=== PATIENT | male | born 1975 | race Caucasian/White ===

== ENCOUNTER 2018-06-18 14:06 | Emergency (ER) | payer BC, OTHER ==
--- NOTE | 2018-06-18 14:59 | EDM.PDOC ---
ED HPI GENERAL MEDICAL PROBLEM - General Chief Complaint: Head Injury Stated Complaint: HEAD LACERATION Time Seen by Provider: 06/18/18 14:38 Source of Information: Reports: Patient History Limitations: Reports: No Limitations - History of Present Illness INITIAL COMMENTS - FREE TEXT/NARRATIVE: Patient presents with laceration on top of his head from the [place] of his car dropping down on him. He denies any LOC, neck pain, vision change. He says his last tetanus update was 5 years ago with his employer. Head Pain Score (Numeric/FACES): 2 - Related Data Allergies Allergy/AdvReac Type Severity Reaction Status Date / Time No Known Drug Allergies Allergy Other Verified 06/18/18 14:24 Past Medical History - Past Health History Medical/Surgical History: Denies Medical/Surgical History Gastrointestinal History: Reports: None Genitourinary History: Reports: None - Infectious Disease History Infectious Disease History: Reports: Chicken Pox - Past Surgical History HEENT Surgical History: Reports: Other (See Below) Other HEENT Surgeries/Procedures: tooth extraction GI Surgical History: Reports: Colonoscopy Male Surgical History: Reports: Vasectomy Social & Family History - Family History Family Medical History: Noncontributory - Tobacco Use Smoking Status *Q: Former Smoker Years of Tobacco use: 20 Packs/Tins Daily: 0.5 Used Tobacco, but Quit: Yes Month/Year Tobacco Last Used: na - Recreational Drug Use Recreational Drug Use: No ED ROS GENERAL - Review of Systems Review Of Systems: See Below Constitutional: Denies: Fever, Chills, Weakness HEENT: Denies: Ear Discharge, Vertigo, Vision Change Respiratory: Reports: No Symptoms. Denies: Shortness of Breath Cardiovascular: Denies: Chest Pain, Lightheadedness, Syncope GI/Abdominal: Reports: No Symptoms. Denies: Vomiting Musculoskeletal: Denies: Neck Pain, Shoulder Pain, Arm Pain, Back Pain, Hand Pain, Leg Pain Skin: Denies: Cyanosis, Jaundice, Mottled, Pallor, Diaphoresis Neurological: Reports: No Symptoms. Denies: Confusion, Dizziness, Headache, Seizure, Syncope, Difficulty Walking, Weakness Psychiatric: Denies: Agitation, Anxiety, Confusion Hematologic/Lymphatic: Denies: Easy Bleeding ED EXAM, HEAD INJURY - Physical Exam Exam: See Below Exam Limited By: No Limitations General Appearance: Alert, WD/WN, No Apparent Distress Head: Normocephalic, Scalp Lacerations, Other (There is a 3 cm laceration of parietal scalp with no significant hematoma or contamination.). No: Scalp Swelling, Scalp Abrasions, Scalp Ecchymosis, Scalp Hematoma, Armijo's Sign, Flap , Facial Abrasions, Facial Ecchymosis, Facial Lacerations, Facial Swelling, Facial Tenderness, Raccoon Eyes Nexus Criteria: No: Posterior, Midline Cervical Tenderness, Evidence of Intoxication, Altered Level of Consciousness, Focal Neurological Deficit, Painful Distraction Injuries Eyes: Bilateral Eye: EOMI, Normal Inspection, PERRL Ears: Normal External Exam, Hearing Grossly Normal Nose: Normal Inspection, No Blood Throat/Mouth: Normal Inspection, Normal Lips, Normal Voice, No Airway Compromise Neck: Non-Tender, Full Range of Motion, Normal Alignment, Normal Inspection. No : Painful Range of Motion, Paraspinous Muscle Tender, Spinous Processes Tender, Tender Lateral, Tender Midline Respiratory: No Respiratory Distress, Lungs Clear, Normal Breath Sounds Cardiovascular: Regular Rate, Rhythm, No Murmur GI/Abdominal Exam: No Distention Back Exam: Full Range of Motion Extremities: Normal Inspection, Normal Range of Motion Neurologic: training administrator II-XII nml As Tested, No Motor/Sensory Deficits, Alert, Normal Mood/Affect, Oriented x 3 Skin: Normal Color, Warm/Dry - Aubrey Coma Score Best Eye Response (Lore): (4) Open Spontaneously Best Verbal Response (Aubrey): (5) Oriented Best Motor Response (Aubrey): (6) Obeys Commands ED LACERATION/WOUND & ROCK PROC - Laceration/Wound Repair Upper Midline Head Lac/wound length in cm: 3 Appearance: Subcutaneous, Clean Distal NVT: Neuro & Vascular Intact Local Anesthesia - Lidocaine (Xylocaine): 1% with EPI Local Anesthetic Volume: 2cc Skin Prep: Chlorhexidine (Hibiciens) Exploration/Debridement/Repair: Wound Explored, In a Bloodless Field, Explored to Base Closed with: [place] # of Sutures: 4 Sterile Dressing Applied: None Tetanus Status Addressed: Yes Complications: No Course - Vital Signs Last Recorded V/S: Last Vital Signs Temp 98.4 F 06/18/18 14:09 Pulse 80 06/18/18 14:09 Resp 16 06/18/18 14:09 BP 148/74 H 06/18/18 14:09 Pulse Ox 94 L 06/18/18 14:09 - Re-Assessments/Exams Free Text/Narrative Re-Assessment/Exam: 06/18/18 15:05 Discussed findings, expectations and treatment plan with patient. He wants to forego the tetanus which at 5 years is appropriate. Sterile technique was utilized to staple the laceration. Patient discharged in stable condition. Departure - Departure Time of Disposition: 14:54 Disposition: Home, Self-Care 01 Condition: Good Clinical Impression: Scalp laceration Qualifiers: Encounter type: initial encounter Qualified Code(s): S01.01XA - Laceration without foreign body of scalp, initial encounter - Discharge Information Instructions: Laceration Care, Adult, [id number] Referrals: Vern Juarez PA-C [Primary Care Provider] - Additional Instructions: 1. Keep wound clean and dry, except may shower; no bathing or swimming for ten days. 2. Topical antibiotic ointment daily is okay. 3. Follow up with your PCP in ten days for staple removal. 4. Recheck sooner if any sign of infection as discussed.
== END 2018-06-18 15:00 | disposition home or self-care (01) ==
LOC: KA.ED 14:06
DX: S01.01XA Laceration without foreign body of scalp, initial encounter (principal); W20.8XXA Other cause of strike by thrown, projected or falling object, initial encounter; Z87.891 Personal history of nicotine dependence
CPT/HCPCS: 12002; 99283

== ENCOUNTER 2020-09-14 10:42 | Emergency (ER) | payer BC ==
--- NOTE | 2020-09-14 10:54 | EDM.PDOC ---
ED HPI GENERAL MEDICAL PROBLEM - General Chief Complaint: Skin Complaint Stated Complaint: SHINGLES??? Time Seen by Provider: 09/14/20 10:45 Source of Information: Reports: Patient History Limitations: Reports: No Limitations - History of Present Illness INITIAL COMMENTS - FREE TEXT/NARRATIVE: 45 YO WM PRESENTS TO ER WITH RASH TO LEFT SIDE OF FOREHEAD X 4 DAYS. PT REPORTS RASH INITIALLY STARTED AN ITCH BUT 4 DAYS AGO HE DEVELOPED VESICLES TO LEFT SIDE OF FOREHEAD. PT BECAME CONCERNED WHEN TODAY HE WOKE UP AND THE LEFT SIDE OF HIS EYELID WAS AFFECTED PROMPTING ER EVALUATION. PT DENIES ANY VISUAL CHANGES OR PAIN IN HIS EYE. PT REPORTS HIS EYE HAS BEEN TEARING MORE TODAY. PT DENIES FEVER/CHILLS, NO HEADACHE OR NECK PAIN. PT DENIES NAUSEA/VOMITING OR DIZZINESS. Duration: Day(s): (4) Location: Reports: Head, Face Quality: Reports: Dull Severity: Mild Improves with: Reports: None Worsens with: Reports: None Associated Symptoms: Reports: No Other Symptoms. Denies: Fever/Chills, Headaches, Malaise, Nausea/Vomiting, Weakness Left Eye Pain Score (Numeric/FACES): 3 - Related Data Allergies Allergy/AdvReac Type Severity Reaction Status Date / Time No Known Drug Allergies Allergy Other Verified 06/18/18 14:24 Home Meds: Home Meds Acyclovir [Zovirax] 800 mg PO 5XDAY #35 tab 09/14/20 [Rx] predniSONE [Prednisone] 20 mg PO DAILY #15 tablet 09/14/20 [Rx] Past Medical History - Past Health History Medical/Surgical History: Denies Medical/Surgical History Gastrointestinal History: Reports: None Genitourinary History: Reports: None - Infectious Disease History Infectious Disease History: Reports: Chicken Pox - Past Surgical History HEENT Surgical History: Reports: Other (See Below) Other HEENT Surgeries/Procedures: tooth extraction GI Surgical History: Reports: Colonoscopy Male Surgical History: Reports: Vasectomy Social & Family History - Family History Family Medical History: No Pertinent Family History ED ROS GENERAL - Review of Systems Review Of Systems: See Below Constitutional: Reports: No Symptoms HEENT: Reports: Eye Discharge. Denies: Eye Pain Respiratory: Reports: No Symptoms Cardiovascular: Reports: No Symptoms Endocrine: Reports: No Symptoms GI/Abdominal: Reports: No Symptoms : Reports: No Symptoms Musculoskeletal: Reports: No Symptoms Skin: Reports: Rash Neurological: Reports: No Symptoms Psychiatric: Reports: No Symptoms Hematologic/Lymphatic: Reports: No Symptoms Immunologic: Reports: No Symptoms ED EXAM, SKIN/RASH Exam: See Below Exam Limited By: No Limitations General Appearance: Alert, WD/WN, No Apparent Distress Eye Exam: Bilateral Eye: EOMI, PERRL Ears: Normal External Exam, Normal Canal, Hearing Grossly Normal, Normal TMs Nose: Normal Inspection, Normal Mucosa, No Blood Throat/Mouth: Normal Inspection, Normal Lips, Normal Teeth, Normal Gums, Normal Oropharynx, Normal Voice, No Airway Compromise Head: Atraumatic, Normocephalic Neck: Normal Inspection, Supple, Non-Tender, Full Range of Motion Respiratory/Chest: No Respiratory Distress, Lungs Clear, Normal Breath Sounds, No Accessory Muscle Use, Chest Non-Tender Cardiovascular: Normal Peripheral Pulses, Regular Rate, Rhythm, No Edema, No Gallop, No JVD, No Murmur, No Rub GI/Abdominal: Normal Bowel Sounds, Soft, Non-Tender, No Organomegaly, No Distention, No Abnormal Bruit, No Mass Extremities: Normal Inspection, Normal Range of Motion, Non-Tender, No Pedal Edema, Normal Capillary Refill Neurological: Alert Psychiatric: Normal Affect, Normal Mood Skin: Warm, Dry, Zoster-Like Rash Location, Skin: Head, Face Characteristics: Vesicular Associated features: Tenderness Lymphatic: No Adenopathy ED SKIN PROCEDURES - Additional/Other Procedure(s) Other (Free Text) Procedure(s): TETRACAINE TO LEFT EYE FOR CORNEAL EXAM. NO EVIDENCE OF FLORACEIN STAIN UPTAKE ON EXAM. NO EVIDENCE OF CORNEAL ABRASION OR ULCER NOTED AT THIS TIME. Course - Vital Signs Last Recorded V/S: Last Vital Signs Temp 98.0 F 09/14/20 10:50 Pulse 78 09/14/20 10:50 Resp 18 09/14/20 10:50 BP 119/86 09/14/20 10:50 Pulse Ox 98 09/14/20 10:50 - Orders/Labs/Meds Meds: Medications Discontinued Medications Generic Name Dose Route Start Last Admin Trade Name Freq PRN Reason Stop Dose Admin Tetracaine HCl 1 ml 09/14/20 11:00 Tetracaine 0.5% Steri-Unit Ruth EYELF 09/14/20 11:01 ASDIRECTED ONE Tetracaine HCl Confirm 09/14/20 11:01 Tetracaine 0.5% Steri-Unit Ruth Administered 09/14/20 11:02 Dose 4 ml .ROUTE .STK-MED ONE Departure - Departure Time of Disposition: 11:21 Disposition: Home, Self-Care 01 Condition: Good Clinical Impression: Shingles Qualifiers: Herpes zoster complications: without complications Qualified Code(s): B02.9 - Zoster without complications - Discharge Information Prescriptions: predniSONE [Prednisone] 20 mg PO DAILY #15 tablet Acyclovir [Zovirax] 800 mg PO 5XDAY #35 tab Instructions: Shingles Referrals: Luna Shearer MD [Primary Care Provider] - Forms: ED Department Discharge, ED Return to Work/School Form Additional Instructions: 1. DISCHARGE HOME 2. ACYCLOVIR 800MG 5X/DAY X 7 DAYS 3. PREDNISONE 60MG DAILY X 5 DAYS 4. OFF WORK X 2 DAYS UNTIL SKIN RASH CRUSTS OVER 5. FOLLOW UP WITH PCP FOR FURTHER EVALUATION AND TREATMENT NEEDED 6. RETURN TO ER FOR WORSENING SYMPTOMS Sepsis Event Note (ED) - Focused Exam Vital Signs: Vital Signs Temp Pulse Resp BP Pulse Ox 09/14/20 10:50 98.0 F 78 18 119/86 98 - Assessment/Plan Assessment:: 1. UNCOMPLICATED SHINGLES TO LEFT SIDE OF FACE Plan: 1. DISCHARGE HOME 2. ACYCLOVIR 800MG 5X/DAY X 7 DAYS 3. PREDNISONE 60MG DAILY X 5 DAYS 4. OFF WORK X 2 DAYS UNTIL SKIN RASH CRUSTS OVER 5. FOLLOW UP WITH PCP FOR FURTHER EVALUATION AND TREATMENT NEEDED 6. RETURN TO ER FOR WORSENING SYMPTOMS
[2020-09-14] MEDS: Tetracaine HCl/PF 0.5% 4 ML Bottle EYELF ONE (11:30)
[2020-09-14] MEDS: predniSONE 20 MG Tab PO ONE (11:39)
[2020-09-14] MEDS: Acyclovir 400 MG Tab PO ONE (11:39)
[2020-09-14] MEDS: Tetracaine HCl/PF 0.5% 4 ML Bottle ONE (12:15)
== END 2020-09-14 11:50 | disposition home or self-care (01) ==
LOC: KA.ED 10:42
DX: B02.9 Zoster without complications (principal)
CPT/HCPCS: 99282; 99283; A9270-GY; J7512

== ENCOUNTER 2021-06-04 16:10 | Emergency (ER) | payer BC ==
--- NOTE | 2021-06-04 17:02 | CT ---
[id number] CT/CT Head WO IV EXAM: CT Head WO IV CLINICAL DATA: DECREASED VISION LEFT EYE, RIGHT ARM PAIN. COMPARISON STUDY: None FINDINGS: No intracranial hemorrhage, extra-axial fluid collection, mass, or acute ischemia. No hydrocephalus. Calvarium intact. Paranasal sinuses and mastoid air cells are clear. IMPRESSION: No acute intracranial findings. Dipak Burns MD 06/04/21 2245 Thank you for allowing us to participate in the care of your patient.
--- NOTE | 2021-06-04 17:12 | EDM.PDOC ---
<Lucien Swan Maurice - Last Filed: 06/04/21 17:17> ED HPI GENERAL MEDICAL PROBLEM - General Chief Complaint: General Stated Complaint: BP CK;VISION ISSUE/R ARM PX Time Seen by Provider: 06/04/21 16:49 Source of Information: Reports: Patient History Limitations: Reports: No Limitations - History of Present Illness INITIAL COMMENTS - FREE TEXT/NARRATIVE: Patient presents with recent vision change and right arm pain. He says that at 0700 this morning, while he was at work, his left eye lost most of its vision for 15 minutes; he could see just pinpoint vision and blurry. After 15 minutes it slowly returned to normal. Then at 1120 he felt a tight, restricting pain around the right upper arm that lasted 30 minutes. He now feels completely back to normal and he didn't leave work during the symptoms. He has never had this before. He denies any history of stroke, heart disease, diabetes. He has had a fairly significant itch all over his body that lasts about an hour on most days of the past two weeks; not due to dry skin. - Related Data Allergies Allergy/AdvReac Type Severity Reaction Status Date / Time No Known Drug Allergies Allergy Other Verified 06/04/21 16:18 Home Meds: Home Meds hydrOXYzine HCL [Hydroxyzine HCl] 25 mg PO DAILY PRN 06/04/21 [History] Past Medical History - Past Health History Medical/Surgical History: Denies Medical/Surgical History HEENT History: Reports: None Cardiovascular History: Reports: None Respiratory History: Reports: None Gastrointestinal History: Reports: None Genitourinary History: Reports: None Musculoskeletal History: Reports: None - Infectious Disease History Infectious Disease History: Reports: Chicken Pox, Shingles - Past Surgical History HEENT Surgical History: Reports: Other (See Below) Other HEENT Surgeries/Procedures: tooth extraction Cardiovascular Surgical History: Reports: None Respiratory Surgical History: Reports: None GI Surgical History: Reports: Colonoscopy Male Surgical History: Reports: Vasectomy Musculoskeletal Surgical History: Reports: None Social & Family History - Family History Family Medical History: No Pertinent Family History - Tobacco Use Tobacco Use Status *Q: Former Tobacco User Used Tobacco, but Quit: Yes Month/Year Tobacco Last Used: quit a couple years ago - Caffeine Use Caffeine Use: Reports: Coffee, Soda - Alcohol Use Days Per Week of Alcohol Use: 2 Number of Drinks Per Day: 6 Total Drinks Per Week: 12 - Recreational Drug Use Recreational Drug Use: No ED ROS GENERAL - Review of Systems Review Of Systems: See Below Constitutional: Denies: Fever, Chills, Malaise, Weakness, Diaphoresis, Decreased Appetite HEENT: Reports: Vision Change. Denies: Ear Pain, Throat Pain Respiratory: Denies: Shortness of Breath, Cough Cardiovascular: Denies: Chest Pain, Lightheadedness, Syncope Endocrine: Denies: Fatigue GI/Abdominal: Denies: Abdominal Pain, Nausea, Vomiting : Denies: Dysuria Musculoskeletal: Reports: Arm Pain (see HPI). Denies: Neck Pain, Shoulder Pain, Back Pain, Hand Pain Skin: Denies: Cyanosis, Jaundice, Mottled, Pallor, Diaphoresis Neurological: Denies: Confusion, Dizziness, Headache, Seizure, Syncope, Trouble Speaking, Difficulty Walking Psychiatric: Denies: Agitation, Anxiety, Confusion ED EXAM, GENERAL - Physical Exam Exam: See Below Exam Limited By: No Limitations General Appearance: Alert, WD/WN, No Apparent Distress Eye Exam: Bilateral Eye: EOMI, Normal Fundi, Normal Inspection (full visual f ields bilat), PERRL Ears: Normal External Exam, Normal Canal, Hearing Grossly Normal, Normal TMs Nose: Normal Inspection, No Blood Throat/Mouth: Normal Inspection, Normal Lips, Normal Oropharynx, Normal Voice, No Airway Compromise Head: Atraumatic, Normocephalic Neck: Normal Inspection, Supple, Non-Tender, Full Range of Motion Respiratory/Chest: No Respiratory Distress, Lungs Clear, Normal Breath Sounds Cardiovascular: Regular Rate, Rhythm, No Murmur GI/Abdominal: Soft, Non-Tender Back Exam: Normal Inspection, Full Range of Motion Extremities: Normal Inspection, Normal Range of Motion Neurological: Alert, Oriented, CN II-XII Intact, Normal Cognition, No Motor/Sensory Deficits Psychiatric: Normal Affect, Normal Mood Skin Exam: Warm, Dry, Intact, Normal Color, No Rash Departure - Departure Disposition: Home, Self-Care 01 Clinical Impression: Normal physical exam, Visual changes, Pain in right arm - Discharge Information Instructions: Eye Floaters Referrals: Luna Shearer MD [Primary Care Provider] - Forms: ED Department Discharge Care Plan Goals: 1. Recommend follow-up with ophthalmology in next week for complete eye exam. Patient did mention he had shingles in his left eye about a year ago and ophthalmology appointment was going to be arranged but due to the Covid epidemic this never was followed up with. 2. Any change in visual acuity or loss of vision patient should return to the emergency room immediately. 3. Recommend follow-up with your primary care for routine checkup in next 7 to 10 days. All your lab work and CT scan of the head were normal findings. Sepsis Event Note (ED) - Evaluation Sepsis Screening Result: No Definite Risk <Dipak Ramírez - Last Filed: 06/04/21 18:09> ED HPI GENERAL MEDICAL PROBLEM - General Source of Information: Reports: Patient History Limitations: Reports: No Limitations - History of Present Illness INITIAL COMMENTS - FREE TEXT/NARRATIVE: Patient denies family history of eye difficulties, blindness, glaucoma, diabetes. He did state to me that he had shingles in his left eye about 1 year ago. Arrangements were in progress for follow-up with ophthalmology but these ultimately did not get completed due to the Covid epidemic and limiting appointments. He does wear corrective eyewear for vision and does not really report a significant change in any of his vision. He is not experiencing any headaches at this time. He is not having any eye pain no ringing in the ears. No current neurologic findings or complaints of voiced. His CT scan of his head came back unremarkable. No evidence of vascular or tumor abnormalities. Not had any prior history of this episode in the past. These symptoms only occurred 1 time today and has never had any reoccurrence. Onset: Today Onset Date: 06/04/21 Onset Time: 07:30 Duration: Minutes:, Resolved Prior to Arrival Location: Reports: Upper Extremity, Right (right arm), Other (left eye) Quality: Reports: Ache Severity: Mild Improves with: Reports: None Worsens with: Reports: None Associated Symptoms: Reports: No Other Symptoms ED ROS GENERAL - Review of Systems HEENT: Reports: Glasses. Denies: Eye Discharge, Eye Pain, Hearing Loss, Vertigo Neurological: Denies: Confusion, Dizziness, Headache, Numbness, Paresthesia, Pre-Existing Deficit, Tingling, Trouble Speaking, Difficulty Walking, Weakness, Change in Speech, Gait Disturbance ED EXAM, GENERAL - Physical Exam Exam Limited By: No Limitations General Appearance: Alert, WD/WN, No Apparent Distress Eye Exam: Bilateral Eye: EOMI, Normal Inspection Ears: Hearing Grossly Normal Nose: Normal Inspection Throat/Mouth: Normal Inspection, Normal Voice, No Airway Compromise Head: Atraumatic, Normocephalic Neck: Normal Inspection Extremities: Normal Inspection, Normal Range of Motion Neurological: Alert, Oriented, CN II-XII Intact, Normal Cognition, Normal Reflexes, No Motor/Sensory Deficits Psychiatric: Normal Affect, Normal Mood Skin Exam: Warm, Dry, Intact, Normal Color, No Rash #1 Interpretation EKG Date: 06/04/21 Time: 17:10 Rhythm: NSR [place]: Normal P-Wave: Present QRS: Normal ST-T: Normal QT: Normal Comparison: NA - No Prior EKG EKG Interpretation Comments: Normal sinus rhythm normal ECG Course - Vital Signs Last Recorded V/S: Last Vital Signs Temp 97.4 F 06/04/21 16:18 Pulse 67 06/04/21 17:30 Resp 18 06/04/21 17:30 BP 129/82 06/04/21 17:30 Pulse Ox 99 06/04/21 17:30 - Orders/Labs/Meds Orders: Active Orders 24 hr Category Date Time Status EKG 12 Lead [EK] Stat Ther 06/04/21 16:59 Ordered Labs: Laboratory Tests 06/04/21 06/04/21 Range/Units 16:40 16:40 WBC 6.94 (5.00-10.00) 10^3/uL RBC 4.84 (4.50-6.00) 10^6/uL Hgb 14.6 (13.0-17.0) g/dL Hct 44.0 (40.0-52.0) % MCV 90.9 (82.0-92.0) fL MCH 30.2 (27.0-31.0) pg MCHC 33.2 (32.0-36.0) g/dL RDW 13.0 (11.5-14.5) % Plt Count 373 (150-400) 10^3/uL MPV 9.5 (7.4-10.4) fL Immature Gran % (Auto) 0.3 (0.0-5.0) % Neut % (Auto) 70.2 H (50.0-70.0) % Lymph % (Auto) 17.1 L (20.0-40.0) % [place] % (Auto) 8.5 H (2.0-8.0) % Eos % (Auto) 2.6 (1.0-3.0) % Baso % (Auto) 1.3 H (0.0-1.0) % Neut # (Auto) 4.87 (2.50-7.00) 10^3/uL Lymph # (Auto) 1.19 (1.00-4.00) 10^3/uL [place] # (Auto) 0.59 (0.10-0.80) 10^3/uL Eos # (Auto) 0.18 (0.10-0.30) 10^3/uL Baso # (Auto) 0.09 (0.00-0.10) 10^3/uL Immature Gran # (Auto) 0.02 (0.00-0.50) 10^3/uL Sodium 143 (136-145) mmol/L Potassium 4.4 (3.5-5.1) mmol/L Chloride 104 (98-107) mmol/L Carbon Dioxide 29.4 (21.0-32.0) mmol/L Anion Gap 14.0 (5-15) mmol/L BUN 17 (7-18) mg/dL Creatinine 0.84 (0.51-1.17) mg/dL Est Cr Clr Drug Dosing 107.55 mL/min Estimated GFR (MDRD) > 60 mL/min Glucose 93 (70-140) mg/dL Calcium 8.5 L (8.7-10.3) mg/dL Troponin I High Sens < 4.000 (0-76.000) pg/mL - Radiology Interpretation Free Text/Narrative:: CT scan of the brain please see report in the patient's chart. CT the brain was negative for any signs of tumor or vascular abnormalities. Departure - Departure Time of Disposition: 18:05 Condition: Good Sepsis Event Note (ED) - Focused Exam Vital Signs: Vital Signs Temp Pulse Resp BP Pulse Ox 06/04/21 17:30 67 18 129/82 99 06/04/21 17:15 64 18 126/84 98 06/04/21 17:00 70 18 119/84 97 06/04/21 16:45 68 18 124/89 98 06/04/21 16:30 67 18 121/85 98 06/04/21 16:18 97.4 F 68 20 118/85 98 - Assessment/Plan Assessment:: 1. Normal physical examination 2. Visual changes resolved 3. Tightness in the right arm resolved Plan: 1. Recommend follow-up with ophthalmology in next week for complete eye exam. Patient did mention he had shingles in his left eye about a year ago and ophthalmology appointment was going to be arranged but due to the Covid epidemic this never was followed up with. 2. Any change in visual acuity or loss of vision patient should return to the emergency room immediately. 3. Recommend follow-up with your primary care for routine checkup in next 7 to 10 days. All your lab work and CT scan of the head were normal findings.
[2021-06-04 17:21] LABS: CHLORIDE,CL 104 mmol/L (98-107); SODIUM,NA 143 mmol/L (136-145)
== END 2021-06-04 18:00 | disposition home or self-care (01) ==
LOC: KA.ED 16:10
DX: M79.601 Pain in right arm (principal); H53.149 Visual discomfort, unspecified; Z87.891 Personal history of nicotine dependence
CPT/HCPCS: 36415; 70450; 80048; 84484; 85025; 93005; 99284; 99284-25